=== PATIENT | male | born 1955 | race Caucasian/White ===

== ENCOUNTER 2020-12-29 01:15 | Day surgery (SDC) | payer OTHER, SELFPAY ==
[2020-12-18 11:38] VITALS: BMI 25.0
[2020-12-29 09:10] VITALS: BP 128/86; PULSE 68; RESP 18; TEMP 36.9; O2SAT 100
[2020-12-29] MEDS: LACTATED RINGERS 1,000 ML 150 ML IV CONT (09:21)
--- NOTE | 2020-12-29 09:28 | PM.HPGS ---
History of Present Illness History of Present Illness Consent: Risks, benefits, and alternatives have been discussed and questions answered. Patient agrees to proceed with procedure. Chief complaint: neoplasm screening Narrative: Leroy Lai is a 65 year old male referred for colon cancer screening Review of Systems Review of Systems: All systems reviewed & are unremarkable except as noted in HPI and below PMFSH Family History Family History Mother Family history of osteoporosis Father Family history of Alzheimer's disease Social History Social History Smoking packs per day: 0.75 Smoking cigarettes per day: 15.0 Smoking status: Current every day smoker Tobacco type: cigarettes Second hand tobacco smoke exposure: No Alcohol intake: current Drinks per week: 15 Substance use: current Substance use type: marijuana Other substance usage details: Rarely Living arrangements: alone Spiritual care concerns: No Meds Home Medications and Allergies Home Medications Medication Instructions Recorded Confirmed Type No Home Medications 12/18/20 12/29/20 History Allergies Allergy/AdvReac Type Severity Reaction Status Date / Time No Known Allergies Allergy Verified 12/18/20 11:37 Vital Signs Vital Signs - 24 hr 12/29/20 09:10 Temperature 36.9 C Pulse Rate 68 Respiratory Rate 18 Blood Pressure 128/86 Pulse Oximetry 100 Exam Resp: Auscultation: clear to auscultation bilaterally Cardio: Rate: regular rate Rhythm: regular rhythm GI: GI Palp: Yes Soft to palpation and No Tenderness to palpation present (GI) Assessment and Plan Assessment and plan (1) Colon cancer screening: Code(s): Z12.11 - Encounter for screening for malignant neoplasm of colon Status: Acute Assessment and Plan: Colonoscopy with possible biopsy or polypectomy or cautery or injection of substances.
--- NOTE | 2020-12-29 09:28 | WPDANESEPPF ---
Anes - Initial Pre Proc Eval Procedure: Operation Date: 12/29/20 10:30 Proposed Procedures p Screening Colonoscopy - Cullen Clarke MD Date/Time: 12/29/20 09:28 Surgeon: Cullen Clarke MD Pre Op Diagnosis: neoplasm screening Patient Data Age: 65 Gender: M Height: 1.75 m Weight: 75.5 kg Last Vital Signs Temp 36.9 C 12/29/20 09:10 Pulse 68 12/29/20 09:10 Resp 18 12/29/20 09:10 BP 128/86 12/29/20 09:10 Pulse Ox 100 12/29/20 09:10 Allergies Allergy/AdvReac Type Severity Reaction Status Date / Time No Known Allergies Allergy Verified 12/18/20 11:37 Home Medications Medication Instructions Recorded Confirmed Type No Home Medications 12/18/20 12/29/20 History Patient hx anesthesia problems: none Family hx anesthesia problems: none Results Review: All pre-operative results and documents have been reviewed as part of the pre-operative evaluation. [facility] Family History Family History Mother Family history of osteoporosis Father Family history of Alzheimer's disease Social History Social History Smoking packs per day: 0.75 Smoking cigarettes per day: 15.0 Smoking status: Current every day smoker Tobacco type: cigarettes Second hand tobacco smoke exposure: No Alcohol intake: current Drinks per week: 15 Substance use: current Substance use type: marijuana Other substance usage details: Rarely Living arrangements: alone Spiritual care concerns: No Anes - Eval Final PreProcedure Day of Procedure 12/29/20 09:28 Patient weight: normal Heart: regular rate and rhythm Lungs: clear to auscultation Airway: Mallampati scale class II Neurological: alert and oriented Last oral intake: >/= 8 hours ASA classification: II Emergent: no Anesthetic plan: proceed Anesthesia type and monitoring: general GIVS and standard monitoring Results Review: All pre-operative results and documents have been reviewed as part of the pre-operative evaluation. Informed Consent: The patient's anesthetic plan and its attendant risks and benefits were discussed with the patient/family/POA. Questions were solicited and answers provided to the satisfaction of the patient/family/POA.
[2020-12-29 10:16] VITALS: BP 118/81; PULSE 68; RESP 18; O2SAT 100
[2020-12-29 10:26] VITALS: BP 141/76; PULSE 67; RESP 16; O2SAT 100
[2020-12-29 10:36] VITALS: BP 128/85; PULSE 56; RESP 14; O2SAT 99
== END 2020-12-29 10:52 | disposition home or self-care (01) ==
PROVIDERS: PCP Internal Medicine; Visit Provider Internal Medicine Gastroenterology
PROC: 0DJD8ZZ Inspection of Lower Intestinal Tract, Via Natural or Artificial Opening Endoscopic (ICD-10-PCS; CPT 45378; principal; 2020-12-29 10:30)
DX: Z12.11 Encounter for screening for malignant neoplasm of colon (principal); K63.5 Polyp of colon; K62.1 Rectal polyp; F17.210 Nicotine dependence, cigarettes, uncomplicated; F12.90 Cannabis use, unspecified, uncomplicated
CPT/HCPCS: 45381; 45385; 88305; J7120

== ENCOUNTER 2021-05-13 11:49 | Observation (INO) | payer OTHER, SELFPAY ==
[2021-05-13] VITALS (7 sets, daily range): BP systolic 128–190; BP diastolic 85–101; PULSE 58–100; RESP 14–18; TEMP 36.4–36.7; O2SAT 97–100; BMI 26.0
--- NOTE | ~2021-05-13 | NM_ITS ---
EXAMINATION: NM yessi stress w perfusion DATE: 05/14/2021 16:47 INDICATION: Chest heaviness. TECHNIQUE: Rest images were obtained following intravenous administration of 9.6 mCi Tc99m tetrofosmi n (Myoview). The patient was infused intravenously with Lexiscan (regadenoson). Then, 30.5 mCi Tc99m tetrofosmin (Myoview) was administered intravenously, and stress images were obtained. Data was recon structed into short axis and horizontal and vertical long axis SPECT images. Gated SPECT images were also obtained. COMPARISON: None. FINDINGS: There is no definite reversible or fixed perfusion abnormality to suggest ischemia or infar ction. There is no segmental wall motion abnormality. Left ventricular ejection fraction measures 5 8%. IMPRESSION: 1. No definite ischemia or infarct. 2. Normal left ventricular ejection fraction measuring 58%. Reviewed, dictated and finalized at location E. DEPOSIT CLERK
--- NOTE | ~2021-05-13 | XR_ITS ---
XR chest 2V DATE: 05/13/2021 12:19 INDICATION: Chest pain, chest tightness TECHNIQUE: PA and lateral views COMPARISON: None FINDINGS: Normal heart size. No hilar or mediastinal enlargement. The lungs are clear. No pleural eff usion or pulmonary vascular congestion or pneumothorax. Included skeletal structures are unremarkable . IMPRESSION: No active cardiopulmonary disease Reviewed, dictated and finalized at location A. MANAGER
--- NOTE | 2021-05-13 11:50 | ECG_ITS ---
Measurements Intervals [place] Rate: 95 P: 72 [place]: 160 QRS: 73 QRSD: 101 T: 57 QT: 334 QTc: 421 Interpretive Statements SINUS RHYTHM VENTRICULAR PREMATURE COMPLEX EARLY PRECORDIAL R/S TRANSITION MINIMAL Q WAVES- ANTEROLAT/INF LEADS BASELINE WANDER- V3 BORDERLINE ECG Electronically Signed On 05-13-2021 13:17:07 COUNTY DIRECTOR by Luc Castorena D.O.
[2021-05-13 12:08] LABS: Basophils Percent Auto 0.6 % (0.2-1.2); Eosinophils Absolute Auto 0.2 K/mm3 (0-0.3); Eosinophils Percent Auto 3.3 % (0-4.4); Hematocrit 41.7 % (42.0-52.0); Hemoglobin 14.7 g/dL (14.0-18.0); Immature Granulocyte Absolute 0.02 K/mm3 (0.00-0.031); Immature Granulocyte Percent A 0.3 % (0-0.5); Lymphocytes Percent Auto 28.9 % (18.3-44.2); Mean Corpuscular HGB Conc 35.3 g/dl (32-36); Mean Corpuscular Hemoglobin 33.6 pg (26-34); Mean Corpuscular Volume 95.2 fl (80-100); Mean Platelet Volume 8.5 fl (7.4-10.4); Monocytes Absolute Auto 0.6 K/mm3 (0.1-0.6); Monocytes Percent Auto 9.3 % (2.6-8.5); Neutrophils Absolute Auto 3.8 K/mm3 (1.3-6.7); Neutrophils Percent Auto 57.6 % (45.5-73.1); Platelet Count Result 248 k/mm3 (150-375); Red Blood Count 4.38 M/mm3 (4.6-6.20); Red Cell Distribution Width 12.2 % (11.5-14.5); White Blood Count 6.6 K/mm3 (4.5-10.0)
[2021-05-13 12:16] LABS: INR 0.9; Prothrombin Time 12.3 Seconds (11.1-14.7)
[2021-05-13 12:17] LABS: Partial Thromboplastin Time 28.8 SECONDS (22.3-36.8)
[2021-05-13 12:19] LABS: Alanine Aminotransferase 20 U/L (4-50); Albumin Level 4.6 g/dL (3.5-5.1); Alkaline Phosphatase 76 U/L (38-126); Anion Gap 9 mmol/L (8-16); Aspartate Amino Transferase 30 U/L (17-59); Bilirubin,Total 0.5 mg/dL (0.2-1.3); Blood Urea Nitrogen 9 mg/dL (9-20); Calcium 9.1 mg/dL (8.4-10.2); Carbon Dioxide 21 mmol/L (22-30); Chloride 98 mmol/L (98-107); Estimated CRCL calculation 81 ml/min; Estimated Glomerular Filt Rate > 60; Glucose 139 mg/dL (65-110); Lipase 101 U/L (23-300); Potassium 3.8 mmol/L (3.4-5.0); Sodium 128 mmol/L (137-145)
[2021-05-13 12:30] LABS: Troponin I < 0.012 ng/mL (0.000-0.034)
--- NOTE | 2021-05-13 15:22 | ED.CHESTPAIN ---
HPI - Chest Pain General Chief Complaint: Chest Pain Stated Complaint: chest pain, headache Time Seen by Provider: 05/13/21 15:22 Source: patient Mode of arrival: ambulatory Limitations: no limitations History of Present Illness HPI narrative: Patient is a 66-year-old male complaining of chest pain, midsternal, pressure, 6 out of 10, radiating to left upper extremity, started last night. Patient denies any shortness of breath, abdominal pain, nausea, vomiting, diaphoresis, fever or chills. Related Data Home Medications Medication Instructions Recorded Confirmed No Home Medications 12/18/20 05/13/21 Allergies Allergy/AdvReac Type Severity Reaction Status Date / Time No Known Allergies Allergy Verified 05/13/21 11:55 Review of Systems Review of Systems: All systems reviewed & are unremarkable except as noted in HPI and below Constitutional: Constitutional: Denies body ache(s), Denies chills, Denies excessive sweating, Denies fatigue, Denies fever(s), Denies headache(s), Denies lethargy, Denies malaise, Denies weakness and Denies weight loss Eyes: Eyes: Denies blurry vision, Denies change in vision and Denies loss of vision ENT: Denies dizziness, Denies ear discharge, Denies headache(s), Denies lip swelling, Denies epistaxis, Denies nasal congestion, Denies neck pain, Denies throat swelling and Denies tongue swelling Cardiovascular: Cardiovascular: Denies diaphoresis, Denies rapid heart rate, Denies edema, Denies irregular heart rhythm, Denies lightheadedness, Denies palpitations, Denies dyspnea and Denies dyspnea on exertion Respiratory: Respiratory: Denies chest congestion, Denies cough, Denies hemoptysis, Denies dyspnea and Denies dyspnea on exertion Gastrointestinal: Gastrointestinal: Denies abdominal pain, Denies melena, Denies hematochezia, Denies diarrhea, Denies nausea, Denies vomiting and Denies hematemesis Musculoskeletal: Musculoskeletal: Denies abnormal gait, Denies deformity, Denies joint swelling, Denies limited range of motion, Denies neck pain and Denies numbness Neurologic: Denies Abnormal speech present, Denies abnormal gait, Denies confusion, Denies dizziness, Denies headache(s), Denies focal weakness, Denies loss of vision, Denies numbness, Denies Other visual disturbances, Denies Sensory deficit (Neuro) and Denies weakness Psychiatric: Psychiatric: Denies confusion, Denies depression, Denies auditory hallucinations, Denies homicidal ideation and Denies suicidal ideation Endocrine: Endocrine: Denies cold intolerance, Denies excessive sweating, Denies fatigue, Denies heat intolerance and Denies palpitations Hematologic/Lymphatic: Hematologic/Lymphatic: Denies easy bleeding and Denies easy bruising Allergic/Immunologic: Allergic/Immunologic: Denies lip swelling, Denies throat swelling and Denies tongue swelling PMFSH Family History Family History Mother Family history of osteoporosis Father Family history of Alzheimer's disease Social History Social History Smoking packs per day: 0.75 Smoking cigarettes per day: 15.0 Smoking status: Current every day smoker Tobacco type: cigarettes Second hand tobacco smoke exposure: No Alcohol intake: current Drinks per week: 15 Substance use: current Substance use type: marijuana Other substance usage details: Rarely Spiritual care concerns: No Comments Past medical history: None Family history: Negative for coronary disease or [place] Exam Const: General: cooperative, healthy appearing, comfortable, no acute distress, well developed, alert and awake; No confusion Orientation/consciousness: oriented to person, oriented to place, oriented to time, patient oriented x3 and No confusion Limitations: no limitations HENMT: Head: normal to inspection, normocephalic and atraumatic Ears: hearing grossly normal bilaterally, TM normal on th
[2021-05-13] MEDS: NITROGLYCERIN OINTMENT 1 INCH DOSE TRANSDERM (16:07)
[2021-05-13 16:34] LABS: Troponin I < 0.012 ng/mL (0.000-0.034)
--- NOTE | 2021-05-13 16:34 | PC.NURSE ---
patient reports taking 325 aspirin prior to ED arrival. ERP informed. Aspirin order dc'd
--- NOTE | 2021-05-13 16:34 | PC.NURSE ---
patient reports 0-1 / 10 pressure in chest after nitro paste.
--- NOTE | 2021-05-13 19:41 | ADMGEN ---
This patient, Leroy Lai, was admitted to [facility] as an IMU overflow at 1940. Patient/family oriented to hospital policies and general routines including ID bracelet, bed and alarms, visiting hours, pain management, procedures, bathroom and other care routines, personal items, smoking policy, room service/diet, and visiting hours. Information on how to activate the Rapid Response Team has been discussed. Patient/Family are encouraged to report perceived risks to care and to ask questions if they do not understand what they are told or what they should do.
[2021-05-13 20:10] LABS: Troponin I < 0.012 ng/mL (0.000-0.034)
--- NOTE | 2021-05-13 21:31 | PM.IMHP ---
H&P: HPI History of Present Illness Date/Time: 05/13/21 21:31 Chief Complaint: chest heaviness Narrative: The Patient is a 66-year-old male who present to the ED with on and off complaints of chest heaviness that he is having since a week or so now. he rpeorts he is also having some achiness in his left shoulder, no obvious injury since about the same time. he went to see his pcp a week ago and his bp was 150s systolic at that time and suggested to quit smoking. he does smoke and has been for several years now. he did cut back on smoking, but has been having intermittent episodes of chest heaviness since then, along with some dizzy episodes. he thus came to the ED for evalaution. EKG with non specific st changes. Initial BP was high, he was given nitro patch, bp has been better. he is also feeling better. troponin initially and serial has remained negative. CXR is neggative. he is thus admitted to the hospital on observation status for further evaluation and management. Review of Systems Review of Systems: - CONSTITUTIONAL: Denies weight loss, fever and chills. - HEENT: Denies changes in vision and hearing - RESPIRATORY: Denies SOB and cough. - CV: Denies palpitations and reprots chest heaviness. - GI: Denies abdominal pain, nausea, vomiting and diarrhea. - : Denies dysuria and urinary frequency. - MSK: Denies myalgia and joint pain. reports left shouder and arm pain - SKIN: Denies rash and pruritus. - NEUROLOGICAL: Denies headache and syncope. - PSYCHIATRIC: Denies recent changes in mood. Denies anxiety and depression. All systems reviewed & are unremarkable except as noted in HPI and below Neurologic: Reports weakness Endocrine: Endocrine: Reports fatigue [facility] Family History Family History Mother Family history of osteoporosis Father Family history of Alzheimer's disease Social History Social History Smoking packs per day: 0.75 Smoking cigarettes per day: 15.0 Smoking status: Current every day smoker Second hand tobacco smoke exposure: No Alcohol intake: current Drinks per week: 15 Substance use: current Substance use type: marijuana Other substance usage details: Rarely Spiritual care concerns: No Meds Home Medications and Allergies Home Medications Medication Instructions Recorded Confirmed Type No Home Medications 12/18/20 05/13/21 History Allergies Allergy/AdvReac Type Severity Reaction Status Date / Time No Known Allergies Allergy Verified 05/13/21 11:55 Vital Signs Vital Signs - 24 hr 05/13/21 11:51 05/13/21 16:29 05/13/21 17:51 Temperature 97.5 F L Pulse Rate 100 62 70 Respiratory Rate 18 14 Blood Pressure 190/101 H 161/91 H Pulse Oximetry 100 100 05/13/21 19:29 05/13/21 20:00 Temperature 98.1 F Pulse Rate 60 62 Respiratory Rate 15 15 Blood Pressure 158/96 H 141/91 H Pulse Oximetry 97 99 Exam Narrative: GENERAL: The patient is well developed, not in acute distress HEENT: Nonicteric sclerae, PERRLA, EOMI. Oropharynx clear. Moist mucous membranes. Conjunctivae appear well perfused. CHEST: Chest wall is nontender. HEART: Regular rate and rhythm without murmur, rubs, or gallops LUNGS: Clear to auscultation bilaterally. no respiratory distress ABDOMEN: Soft, positive bowel sounds, non-tender, no organomegaly. SKIN: No rash, no excessive bruising, petechiae, or purpura. NEUROLOGIC: Cranial nerves II-XII intact, alert and oriented x 3, no gross motor deficits EXTREMITIES: no edema, cyanosis or clubbing Extrem: General: normal exam except as noted and no edema H&P: Results Labs Labs: Short CBC 05/13/21 Range/Units 12:00 WBC 6.6 (4.5-10.0) K/mm3 Hgb 14.7 (14.0-18.0) g/dL Hct 41.7 L (42.0-52.0) % Plt Count 248 (150-375) k/mm3 BMP 05/13/21 12:00 Sodium 128 L Potassium 3.8 Chloride 98
[2021-05-13 23:51] LABS: Creatine Kinase 72 U/L (55-170)
[2021-05-13 23:58] LABS: D Dimer < 0.22 ug/mL (<0.48)
[2021-05-14] VITALS (13 sets, daily range): BP systolic 128–167; BP diastolic 73–111; PULSE 52–73; RESP 11–19; TEMP 36.3–36.8; O2SAT 96–98
--- NOTE | 2021-05-14 | ECHO_ITS ---
Patient Info Name: Leroy Lai Age: 66 years : 1955 Gender: Male Ht: 69 in Wt: 176 lbs BSA: 1.98 m2 HR: 62 bpm BP: 136 / 95 mmHg Heart Rhythm: Sinus Rhythm Exam Date: 05/14/2021 12:39 PM [facility] Patient Status: Outpatient Admit Date: 05/13/2021 Staff Ordering Physician: Sam Higgins MD Serology Teacher: Corona Hinson, KAROLYN, RT Attending Provider: Clau Mcfarlane MD Referring Physician: Ronaldo JIMENEZ; Exam Type: CA echo doppler color flow Study Info Indications I11.0 - Hypertensive heart disease with heart failure Complete two-dimensional, color flow and Doppler transthoracic echocardiogram is performed. Strain analysis performed. Summary 1. Complete two-dimensional, color flow and Doppler transthoracic echocardiogram is performed. 2. Strain analysis performed. 3. Aneurysmal atrial septum. 4. Left ventricular chamber dimension is normal. 5. Left ventricular systolic function is normal, estimated at 65-70%. 6. There is no increased left ventricular wall thickness. 7. The left ventricular diastolic function is grade I diastolic dysfunction. 8. Global longitudinal strain is normal at -21 %. 9. There is mild mitral valve regurgitation. 10. There is mild tricuspid valve regurgitation. Left Ventricle Left ventricular chamber dimension is normal. Left ventricular systolic function is normal, estimated at 65-70%. There is no increased left ventricular wall thickness. The left ventricular diastolic function is grade I diastolic dysfunction. Global longitudinal strain is normal at -21 %. Right Ventricle Right ventricular chamber dimension is normal. Right ventricular systolic function is normal. Left Atria Left atrial chamber dimension is normal. Right Atria Right atrial chamber dimension is normal. Atrial Septum Aneurysmal atrial septum. Aortic Valve The aortic valve is trileaflet. There is mild aortic valve sclerosis. There is no aortic valve stenosis. There is trace aortic valve regurgitation. Pulmonic Valve The pulmonic valve is normal. There is no pulmonic valve stenosis. There is trace pulmonic regurgitation. Mitral Valve The mitral valve has normal leaflets. There is no mitral valve stenosis. There is mild mitral valve regurgitation. Tricuspid Valve The tricuspid valve leaflets are normal. There is no significant tricuspid valve stenosis. There is mild tricuspid valve regurgitation. Pericardium/Pleural The pericardium appears normal. Inferior Vena Cava Normal inferior vena cava with >50% collapse upon inspiration consistent with normal right atrial pressure, 5 mmHg. Aorta The aortic root size at the sinus of Valsalva is normal. Left Ventricular Outflow Tract Name Value Normal LVOT 2D LVOT Diameter 2.0 cm LVOT Doppler LVOT Peak Gradient 5 mmHg LVOT Mean Gradient 3 mmHg LVOT VTI 25 cm LVOT VTI/AV VTI Ratio 0.9 LVOT Stroke Volume 82 ml LVOT CO
[2021-05-14 06:08] LABS: Basophils Absolute Auto 0.1 K/mm3 (0.0-0.1); Basophils Percent Auto 0.7 % (0.2-1.2); Eosinophils Absolute Auto 0.3 K/mm3 (0-0.3); Eosinophils Percent Auto 3.9 % (0-4.4); Hematocrit 36.9 % (42.0-52.0); Immature Granulocyte Absolute 0.03 K/mm3 (0.00-0.031); Immature Granulocyte Percent A 0.4 % (0-0.5); Mean Corpuscular HGB Conc 35.2 g/dl (32-36); Mean Corpuscular Hemoglobin 33.5 pg (26-34); Mean Corpuscular Volume 95.1 fl (80-100); Mean Platelet Volume 8.4 fl (7.4-10.4); Monocytes Absolute Auto 0.6 K/mm3 (0.1-0.6); Monocytes Percent Auto 8.3 % (2.6-8.5); Neutrophils Absolute Auto 4.4 K/mm3 (1.3-6.7); Neutrophils Percent Auto 63.7 % (45.5-73.1); Platelet Count Result 213 k/mm3 (150-375); Red Blood Count 3.88 M/mm3 (4.6-6.20); Red Cell Distribution Width 11.9 % (11.5-14.5)
[2021-05-14 06:19] LABS: Anion Gap 4 mmol/L (8-16); Blood Urea Nitrogen 7 mg/dL (9-20); Calcium 8.7 mg/dL (8.4-10.2); Carbon Dioxide 23 mmol/L (22-30); Chloride 100 mmol/L (98-107); Estimated CRCL calculation 81 ml/min; Estimated Glomerular Filt Rate > 60; Glucose 100 mg/dL (65-110); Magnesium 1.9 mg/dL (1.6-2.3); Potassium 4.3 mmol/L (3.4-5.0); Sodium 127 mmol/L (137-145)
[2021-05-14] MEDS: ASPIRIN 81 MG ENTERIC TABLET PO (09:14)
[2021-05-14] MEDS: LOSARTAN POTASSIUM 25 MG TABLET PO (09:14)
--- NOTE | 2021-05-14 09:30 | P.PNIM_ITS ---
Progress Note: A&P Assessment and Plan (1) Chest pain: Qualifiers: Chest pain type: unspecified Qualified Code(s): R07.9 - Chest pain, unspecified Code(s): R07.9 - Chest pain, unspecified Status: Acute Assessment and Plan: * Chest pain: typical/atypical features * EKG with non specific st t changes * serial troponin negative * CXR negative * d dimer <0.22 * Risk factors: htn, smoking * Lipid profile in am * Aspirin 81mg PO daily * Cardiology has been consulted wait their recommendations * chest pain could be related to his uncontrolled HTN as well * Nitro sublingual PRN, stated that this helped the chest pain (2) Hyponatremia: Code(s): E87.1 - Hypo-osmolality and hyponatremia Status: Acute Assessment and Plan: * Na on admission was 128 * Trending down to 127 * Could be from excessive water intake over the last couple of days * Continue to trend * IV fluids (3) Hypertension: Code(s): I10 - Essential (primary) hypertension Status: Acute Assessment and Plan: * Current 136/95 * Uncontrolled nitro paste helped to lower * start losartan 25 mg po daily * Trend BP * Adjust therapy as indicated (4) ETOH abuse: Code(s): F10.10 - Alcohol abuse, uncomplicated Status: Acute Assessment and Plan: * Drinks minimum of 15 drinks a week * Thiamine and folic acid on board * Librium and Ativan also on board * Cessation education given * Education of withdrawal symptoms also given * [facility] protocol, current score 0 (5) Tobacco abuse: Code(s): Z72.0 - Tobacco use Status: Acute Assessment and Plan: * Smokes less than a pack a day * Smoke patch PRN * Smoking cessation provided for 8 minutes Time Spent With Patient Time with patient: Greater than 35 minutes Subjective Date/time seen: 05/14/21 0930 Interval history: Date/Time: 05/13/21 21:31 Narrative: The Patient is a 66-year-old male who present to the ED with on and off complaints of chest heaviness that he is having since a week or so now. he reports he is also having some achiness in his left shoulder, no obvious injury since about the same time. he went to see his pcp a week ago and his bp was 150s systolic at that time and suggested to quit smoking. he does smoke and has been for several years now. he did cut back on smoking, but has been having intermittent episodes of chest heaviness since then, along with some dizzy episodes. he thus came to the ED for evaluation. EKG with non specific st changes. Initial BP was high, he was given nitro patch, bp has been better. he is also feeling better. troponin initially and serial has remained negative. CXR is negative. Date/Time 05/14/21 0930 Patient was Lying in bed. Patient stated that he is feeling better since he got the nitro however does have a headache. Patient stated that he he still gets kind dizzy and mostly when standing. He did feel his palpitations and was all over. Patient stated he has had these feelings for about 10 days. Patient also talked to me about alcohol use. Patient stated that he usually drinks about 15 beers at minimum a week. Patient also states that he does not take any medications at home except for occasional Viagra occasional Xanax. Currently patient denies any chest pain, nausea, vomiting, diarrhea, constipation, abdominal pain. Patient did state that he was having some cramping in his legs however his sodium is low. He does admit to natalie
--- NOTE | 2021-05-14 09:30 | PM.IMPN ---
Progress Note: A&P Assessment and Plan (1) Chest pain: Qualifiers: Chest pain type: unspecified Qualified Code(s): R07.9 - Chest pain, unspecified Code(s): R07.9 - Chest pain, unspecified Status: Acute Assessment and Plan: Chest pain: typical/atypical features EKG with non specific st t changes serial troponin negative CXR negative d dimer <0.22 Risk factors: htn, smoking Lipid profile in am Aspirin 81mg PO daily Cardiology has been consulted wait their recommendations chest pain could be related to his uncontrolled HTN as well Nitro sublingual PRN, stated that this helped the chest pain (2) Hyponatremia: Code(s): E87.1 - Hypo-osmolality and hyponatremia Status: Acute Assessment and Plan: Na on admission was 128 Trending down to 127 Could be from excessive water intake over the last couple of days Continue to trend IV fluids (3) Hypertension: Code(s): I10 - Essential (primary) hypertension Status: Acute Assessment and Plan: Current 136/95 Uncontrolled nitro paste helped to lower start losartan 25 mg po daily Trend BP Adjust therapy as indicated (4) ETOH abuse: Code(s): F10.10 - Alcohol abuse, uncomplicated Status: Acute Assessment and Plan: Drinks minimum of 15 drinks a week Thiamine and folic acid on board Librium and Ativan also on board Cessation education given Education of withdrawal symptoms also given [facility] protocol, current score 0 (5) Tobacco abuse: Code(s): Z72.0 - Tobacco use Status: Acute Assessment and Plan: Smokes less than a pack a day Smoke patch PRN Smoking cessation provided for 8 minutes Time Spent With Patient Time with patient: Greater than 35 minutes Subjective Date/time seen: 05/14/21 0930 Interval history: Date/Time: 05/13/21 21:31 Narrative: The Patient is a 66-year-old male who present to the ED with on and off complaints of chest heaviness that he is having since a week or so now. he reports he is also having some achiness in his left shoulder, no obvious injury since about the same time. he went to see his pcp a week ago and his bp was 150s systolic at that time and suggested to quit smoking. he does smoke and has been for several years now. he did cut back on smoking, but has been having intermittent episodes of chest heaviness since then, along with some dizzy episodes. he thus came to the ED for evaluation. EKG with non specific st changes. Initial BP was high, he was given nitro patch, bp has been better. he is also feeling better. troponin initially and serial has remained negative. CXR is negative. Date/Time 05/14/21 0930 Patient was Lying in bed. Patient stated that he is feeling better since he got the nitro however does have a headache. Patient stated that he he still gets kind dizzy and mostly when standing. He did feel his palpitations and was all over. Patient stated he has had these feelings for about 10 days. Patient also talked to me about alcohol use. Patient stated that he usually drinks about 15 beers at minimum a week. Patient also states that he does not take any medications at home except for occasional Viagra occasional Xanax. Currently patient denies any chest pain, nausea, vomiting, diarrhea, constipation, abdominal pain. Patient did state that he was having some cramping in his legs however his sodium is low. He does admit to drinking a lot of water over the last couple days thinking that it would help his chest pain. Review of Systems Review of Systems: All systems reviewed & are unremarkable except as noted in HPI and below Exam Const: General: cooperative, no acute distress, well developed, alert and awake Nutritional Appearance: well nourished Orientation/consciousness: oriented to person, oriented to place, oriented to time and patient oriented x3 Limitations: no
--- NOTE | 2021-05-14 11:37 | PM.CNCAR ---
Assessment and Plan Assessment and plan (1) Chest pain: Qualifiers: Chest pain type: unspecified Qualified Code(s): R07.9 - Chest pain, unspecified Code(s): R07.9 - Chest pain, unspecified Status: Acute Assessment and Plan: Atypical chest pain. His shoulder pain is not related to his cardiac status. Shoulder pain is musculoskeletal in etiology. He does have some chest heaviness symptoms that are new to him. Will perform a Lexiscan myocardial perfusion study. Will discontinue his nitroglycerin paste. Aspirin 81 mg p.o. daily until stress test is complete (2) Hypertension: Code(s): I10 - Essential (primary) hypertension Status: Acute Assessment and Plan: Severely elevated at presentation. Losartan 25 mg p.o. daily and up titrate as need be. Discontinue nitroglycerin paste. 2D echocardiogram Doppler will be ordered and reviewed. Can add secondary agent such as metoprolol depending on results of stress test. (3) Hyponatremia: Code(s): E87.1 - Hypo-osmolality and hyponatremia Status: Acute Assessment and Plan: Workup per hospitalist. (4) Tobacco abuse: Code(s): Z72.0 - Tobacco use Status: Acute Assessment and Plan: Tobacco abuse counseling performed. History of Present Illness History of Present Illness Consult date/time: 05/14/21 11:37 Requesting physician: Florin Silva MD Consult reason: chest pain Reason For Visit: chest pain Narrative: Date of service 05/14/2021 Reason consultation: Chest pain Requesting provider: Dr. Silva History patient is a 66-year-old male who presents to the ER because of some left shoulder pain as well as high blood pressure and not feeling well. He states that about 10 days ago he started simply not feeling right. He had some left shoulder pain that has been relatively constant. It would hurt if he would move his arm back. He felt anxious and had some mild headaches. He saw his primary care provider within the last week and was noted his blood pressure is 150/90. No medications were initiated at that time. He continues to feel anxious as well as simply not feeling right. He had no exertional chest pain. He did have some intermittent mild chest pressure gently noted at night. He had some dyspnea when shoveling snow last week but otherwise no significant shortness of breath. He denies any syncope, presyncope, paroxysmal nocturnal dyspnea, orthopnea, edema or significant palpitations. When he came to the ER, his blood pressure was markedly elevated 190/101. Review of Systems Review of Systems: All systems reviewed & are unremarkable except as noted in HPI and below Constitutional: Constitutional: Denies weakness Eyes: Eyes: Denies blurry vision ENT: Denies Normal hearing present Cardiovascular: Cardiovascular: Reports chest pain and Denies leg edema Respiratory: Respiratory: Reports dyspnea on exertion Gastrointestinal: Gastrointestinal: Denies abdominal pain Genitourinary: Genitourinary: Denies dysuria Musculoskeletal: Musculoskeletal: Denies back pain and Denies neck pain Integumentary/Breasts: Skin/Breast: Denies dry skin Neurologic: Reports headache(s) Psychiatric: Psychiatric: Reports anxiety Endocrine: Endocrine: Denies fatigue Hematologic/Lymphatic: Hematologic/Lymphatic: Denies easy bleeding Allergic/Immunologic: Allergic/Immunologic: Denies GI upset with certain foods PMFSH Past Medical History Medical History (Updated 05/14/21 @ 11:41 by Sam Higgins MD) Tobacco abuse Family History Family History Mother Family history of osteoporosis Father Family history of Alzheimer's disease Social History Social History Smoking packs per day: 0.75 Smoking cigarettes per day: 15.0 Smoking status: Current every day smoker Second hand tobacco
--- NOTE | 2021-05-14 11:45 | EST_ITS ---
Patient Info Name: Leroy Lai Age: 66 years : 1955 Gender: Male Ht: 69 in Wt: 176 lbs BSA: 1.98 m2 HR: 62 bpm BP: 148 / 85 mmHg Heart Rhythm: Sinus Rhythm Exam Date: 05/14/2021 3:44 PM Exam Location: [facility] Stress Patient Status: Inpatient Admit Date: 05/13/2021 Staff Ordering Physician: Sam Higgins MD Attending Provider: Clau Mcfarlane MD Exercise Technologist: Ivy Graham, [place] Nurse: ROLDAN ANDRADE Exam Type: CA stress yessi w NM Study Info Indications R07.9 - Chest pain, unspecified A regadenoson stress test was performed. Summary 1. Please correlate with nuclear medicine images, reported separately. 2. No abnormal ST-T wave changes with lexiscan. Protocol: Lexiscan Stress ECG Details Stage: REST Duration (min): 1 min : 2 sec HR (bpm): 67 SBP (mmHg): 148 DBP (mmHg): 85 Stage: REST Duration (min): 4 min : 3 sec HR (bpm): 62 SBP (mmHg): 148 DBP (mmHg): 85 Stage: STAGE 1 Duration (min): 1 min : 0 sec HR (bpm): 104 SBP (mmHg): 161 DBP (mmHg): 80 Stage: RECOVERY Duration (min): 1 min : 0 sec HR (bpm): 108 SBP (mmHg): 161 DBP (mmHg): 80 Stage: RECOVERY Duration (min): 2 min : 0 sec HR (bpm): 100 SBP (mmHg): 161 DBP (mmHg): 80 Stage: RECOVERY Duration (min): 3 min : 0 sec HR (bpm): 92 SBP (mmHg): 167 DBP (mmHg): 88 Stage: RECOVERY Duration (min): 3 min : 2 sec HR (bpm): 93 SBP (mmHg): 167 DBP (mmHg): 88 Rest HR: 62 bpm Peak HR: 116 bpm Rest Sys BP: 148 mmHg Peak Sys BP: 167 mmHg Max Pred HR: 156 bpm % Max Pred HR: 74 % Target HR: 133 bpm Max RPP: 19,372 bpm*mmHg Target HR Summary: Hemodynamic response to exercise was normal BP Response: Normal blood pressure response Termination Reason: Completed protocol Cardiac Symptoms: None Total Time: 1 min : 0 sec Rest Reed BP: 85 mmHg Peak Reed BP: 88 mmHg Total Dose: 0.4 mg Resting ECG Normal sinus rhythm. LVH. Will see me a single-story. Stress ECG No abnormal ST/T wave changes with Lexiscan. Arrhythmias None. Report Signatures
[2021-05-14] MEDS: SODIUM CHLORIDE 0.9% IV 1,000 ML 75 ML IV CONT (12:09)
[2021-05-14] MEDS: THIAMINE HCL 100 MG TABLET PO (12:12)
[2021-05-14] MEDS: FOLIC ACID 1 MG TABLET PO (12:12)
[2021-05-14 12:37] LABS: Creatinine Urine 101.9 mg/dL; Urea Random Urine 406 MG/DL
[2021-05-14 12:39] LABS: Sodium Urine Random 53 meq/L
--- NOTE | 2021-05-14 15:53 | PC.NURSE ---
1500-pt transferred via wheelchair, with campus monitor for stress test.
[2021-05-14] MEDS: ACETAMINOPHEN 500 MG TABLET 1000 MG PO (18:03)
[2021-05-15] VITALS: BP 138/70; PULSE 64; RESP 13; O2SAT 97
[2021-05-15 04:00] VITALS: BP 140/70; PULSE 62; RESP 14; TEMP 36.3; O2SAT 96
[2021-05-15] MEDS: SODIUM CHLORIDE 0.9% IV 1,000 ML 75 ML IV CONT (04:00)
[2021-05-15 07:25] LABS: Basophils Absolute Auto 0.1 K/mm3 (0.0-0.1); Basophils Percent Auto 1.2 % (0.2-1.2); Eosinophils Absolute Auto 0.3 K/mm3 (0-0.3); Eosinophils Percent Auto 5.8 % (0-4.4); Hematocrit 38.1 % (42.0-52.0); Hemoglobin 13.4 g/dL (14.0-18.0); Immature Granulocyte Absolute 0.01 K/mm3 (0.00-0.031); Immature Granulocyte Percent A 0.2 % (0-0.5); Lymphocytes Absolute Auto 1.37 K/mm3 (0.9-3.2); Lymphocytes Percent Auto 31.9 % (18.3-44.2); Mean Corpuscular HGB Conc 35.2 g/dl (32-36); Mean Corpuscular Hemoglobin 33.3 pg (26-34); Mean Corpuscular Volume 94.8 fl (80-100); Mean Platelet Volume 8.5 fl (7.4-10.4); Monocytes Absolute Auto 0.4 K/mm3 (0.1-0.6); Monocytes Percent Auto 10.3 % (2.6-8.5); Neutrophils Absolute Auto 2.2 K/mm3 (1.3-6.7); Neutrophils Percent Auto 50.6 % (45.5-73.1); Platelet Count Result 213 k/mm3 (150-375); Red Blood Count 4.02 M/mm3 (4.6-6.20); Red Cell Distribution Width 11.9 % (11.5-14.5); White Blood Count 4.3 K/mm3 (4.5-10.0)
[2021-05-15 07:38] LABS: Alanine Aminotransferase 15 U/L (4-50); Albumin Level 3.9 g/dL (3.5-5.1); Alkaline Phosphatase 68 U/L (38-126); Anion Gap 9 mmol/L (8-16); Aspartate Amino Transferase 25 U/L (17-59); Bilirubin,Total 0.7 mg/dL (0.2-1.3); Blood Urea Nitrogen 8 mg/dL (9-20); Calcium 8.6 mg/dL (8.4-10.2); Carbon Dioxide 22 mmol/L (22-30); Chloride 100 mmol/L (98-107); Estimated CRCL calculation 92 ml/min; Estimated Glomerular Filt Rate > 60; Glucose 91 mg/dL (65-110); Magnesium 1.8 mg/dL (1.6-2.3); Potassium 4.2 mmol/L (3.4-5.0); Sodium 131 mmol/L (137-145)
[2021-05-15 08:00] VITALS: BP 125/84; PULSE 56; PULSE 66; RESP 16; TEMP 36.6; O2SAT 96
[2021-05-15 08:22] LABS: Cholesterol 175 mg/dL (0-200); HDL Direct 45 mg/dL; Triglycerides 113 mg/dL (<150)
[2021-05-15 08:33] LABS: LDL Cholesterol Direct 88 mg/dL
[2021-05-15] MEDS: ASPIRIN 81 MG ENTERIC TABLET PO (08:37)
[2021-05-15] MEDS: THIAMINE HCL 100 MG TABLET PO (08:37)
[2021-05-15] MEDS: FOLIC ACID 1 MG TABLET PO (08:37)
[2021-05-15] MEDS: LOSARTAN POTASSIUM 25 MG TABLET PO (08:37)
[2021-05-15] MEDS: MAGNESIUM SULF 2 GM/WATER 50ML 2 GM/50 ML BAG IVPB (08:45)
[2021-05-15 10:00] VITALS: PULSE 71
--- NOTE | 2021-05-15 10:00 | P.DS_ITS ---
DS: Admitting Diagnosis Discharge Date 05/15/21 1000 Admitting Diagnosis Angina and hyponatremia DS: Discharge Diagnosis Discharge Diagnosis (1) Chest pain: Qualifiers: Chest pain type: unspecified Qualified Code(s): R07.9 - Chest pain, unspecified Code(s): R07.9 - Chest pain, unspecified Status: Acute Assessment and Plan: * Chest pain: typical/atypical features * EKG with non specific st t changes * serial troponin negative * CXR negative * d dimer <0.22 * Risk factors: htn, smoking * Lipid profile in am * Aspirin 81mg PO daily * Cardiology has been consulted * Miah scan shows no abnormalities * Echo shows EF 60-65% with grade 1 diastolic dysfunction * chest pain could be related to his uncontrolled HTN as well (2) Hyponatremia: Code(s): E87.1 - Hypo-osmolality and hyponatremia Status: Acute Assessment and Plan: * Na on admission was 128 * Current sodium is 131 * Could be from excessive water intake over the last couple of days * Continue to trend * IV fluids (3) Hypertension: Code(s): I10 - Essential (primary) hypertension Status: Acute Assessment and Plan: * Current 140/70 * start losartan 25 mg po daily * Trend BP * Adjust therapy as indicated (4) ETOH abuse: Code(s): F10.10 - Alcohol abuse, uncomplicated Status: Acute Assessment and Plan: * Drinks minimum of 15 drinks a week * Thiamine and folic acid on board * Librium and Ativan also on board * Cessation education given * Education of withdrawal symptoms also given * [facility] protocol, current score 0 (5) Tobacco abuse: Code(s): Z72.0 - Tobacco use Status: Acute Assessment and Plan: * Smokes less than a pack a day * Smoke patch PRN * Smoking cessation provided for 8 minutes DS: Summary Hospital Course Hospital Course: Patient is a 66-year-old male with no significant medical history other than smoking and alcohol abuse. Patient presented the ED for chest heaviness that would radiate to his left shoulder. Patient stated that symptoms have been ongoing for the past week. It was noted that his blood pressure was elevated at 190/101 upon admission. Patient was started on losartan and blood pressure has been more controlled and is currently 140/70 today. EKG was initially done in showed no ST changes patient was in sinus rhythm. Patient was given nitro patch which did help the blood pressure and chest pain did resolve at that time. Troponins were trended and all 3 came back less than 0.012. Pamela scan stress test was also performed and showed no infarct or ischemia with a measured EF of 50%. Echo was performed showing EF of 60-65% with grade 1 diastolic dysfunction and no significant regurgitation with any of the valves. Patient was also noted to be hyponatremic with a sodium of 128 upon admission. Sodium was on trend was not noticing a downhill trend until 2 day which sodium is 131. Patient did admit to drinking a lot of water thinking that would help his chest pain. Patient was given IV fluids and sodium has corrected. Patient was also counseled about his alcohol abuse which the patient does admit to drinking a minimum of 15 drinks per week. Patient stated that he is a single man with no kids and lives that lifestyle. Patient was also counseled about smoking cessation as patient stated that he has cut down however has not completely quit. Patient was given counseling and stable for discharge at this time. Vital signs
--- NOTE | 2021-05-15 10:00 | PM.DS ---
DS: Admitting Diagnosis Discharge Date 05/15/21 1000 Admitting Diagnosis Angina and hyponatremia DS: Discharge Diagnosis Discharge Diagnosis (1) Chest pain: Qualifiers: Chest pain type: unspecified Qualified Code(s): R07.9 - Chest pain, unspecified Code(s): R07.9 - Chest pain, unspecified Status: Acute Assessment and Plan: Chest pain: typical/atypical features EKG with non specific st t changes serial troponin negative CXR negative d dimer <0.22 Risk factors: htn, smoking Lipid profile in am Aspirin 81mg PO daily Cardiology has been consulted Miah scan shows no abnormalities Echo shows EF 60-65% with grade 1 diastolic dysfunction chest pain could be related to his uncontrolled HTN as well (2) Hyponatremia: Code(s): E87.1 - Hypo-osmolality and hyponatremia Status: Acute Assessment and Plan: Na on admission was 128 Current sodium is 131 Could be from excessive water intake over the last couple of days Continue to trend IV fluids (3) Hypertension: Code(s): I10 - Essential (primary) hypertension Status: Acute Assessment and Plan: Current 140/70 start losartan 25 mg po daily Trend BP Adjust therapy as indicated (4) ETOH abuse: Code(s): F10.10 - Alcohol abuse, uncomplicated Status: Acute Assessment and Plan: Drinks minimum of 15 drinks a week Thiamine and folic acid on board Librium and Ativan also on board Cessation education given Education of withdrawal symptoms also given [facility] protocol, current score 0 (5) Tobacco abuse: Code(s): Z72.0 - Tobacco use Status: Acute Assessment and Plan: Smokes less than a pack a day Smoke patch PRN Smoking cessation provided for 8 minutes DS: Summary Hospital Course Hospital Course: Patient is a 66-year-old male with no significant medical history other than smoking and alcohol abuse. Patient presented the ED for chest heaviness that would radiate to his left shoulder. Patient stated that symptoms have been ongoing for the past week. It was noted that his blood pressure was elevated at 190/101 upon admission. Patient was started on losartan and blood pressure has been more controlled and is currently 140/70 today. EKG was initially done in showed no ST changes patient was in sinus rhythm. Patient was given nitro patch which did help the blood pressure and chest pain did resolve at that time. Troponins were trended and all 3 came back less than 0.012. Pamela scan stress test was also performed and showed no infarct or ischemia with a measured EF of 50%. Echo was performed showing EF of 60-65% with grade 1 diastolic dysfunction and no significant regurgitation with any of the valves. Patient was also noted to be hyponatremic with a sodium of 128 upon admission. Sodium was on trend was not noticing a downhill trend until 2 day which sodium is 131. Patient did admit to drinking a lot of water thinking that would help his chest pain. Patient was given IV fluids and sodium has corrected. Patient was also counseled about his alcohol abuse which the patient does admit to drinking a minimum of 15 drinks per week. Patient stated that he is a single man with no kids and lives that lifestyle. Patient was also counseled about smoking cessation as patient stated that he has cut down however has not completely quit. Patient was given counseling and stable for discharge at this time. Vital signs and labs have been stable. Patient is ready to go and denies any chest pain, shortness of breath, nausea, vomiting, diarrhea, constipation, weakness, fatigue. Time spent discussing smoking cessation with patient: more than 10 minutes Status at Discharge Functional status at discharge: independent ambulation Overall status at discharge: patient is progressing back to baseline Time Spent with Patient Time attestation: Total time spent p
--- NOTE | 2021-05-15 10:11 | PM.PNCARD ---
Progress Note: A&P Assessment and Plan (1) Chest pain: Qualifiers: Chest pain type: unspecified Qualified Code(s): R07.9 - Chest pain, unspecified Code(s): R07.9 - Chest pain, unspecified Status: Acute Assessment and Plan: Atypical chest pain. His shoulder pain is not related to his cardiac status. Shoulder pain is musculoskeletal in etiology. Stress test is is normal. (2) Hypertension: Code(s): I10 - Essential (primary) hypertension Status: Acute Assessment and Plan: Continue losartan. May need up titration as an outpatient. Follow-up with Dr. Martinez (3) Hyponatremia: Code(s): E87.1 - Hypo-osmolality and hyponatremia Status: Acute Assessment and Plan: Workup per hospitalist. (4) Tobacco abuse: Code(s): Z72.0 - Tobacco use Status: Acute Assessment and Plan: Tobacco abuse counseling performed. (5) Atrial septal aneurysm: Code(s): I25.3 - Aneurysm of heart Status: Acute Assessment and Plan: Low-dose aspirin 81 mg p.o. daily to be continued Subjective Date/time seen: 05/15/21 10:11 Interval history: 66-year-old admitted with some chest discomfort and high blood pressure Date of service 05/15/2021: He feels pretty well today. No chest pain, shortness breath. Anxious to go home. Stress test and echocardiogram essentially unremarkable. Echocardiogram did show an atrial septal aneurysm Review of Systems Review of Systems: All systems reviewed & are unremarkable except as noted in HPI and below Constitutional: Constitutional: Denies fatigue, Reports headache(s) and Denies weakness Eyes: Eyes: Denies blurry vision ENT: Denies Normal hearing present, Reports headache(s) and Denies neck pain Cardiovascular: Cardiovascular: Reports chest pain, Denies leg edema and Reports dyspnea on exertion Respiratory: Respiratory: Reports dyspnea on exertion Gastrointestinal: Gastrointestinal: Denies abdominal pain Genitourinary: Genitourinary: Denies dysuria Musculoskeletal: Musculoskeletal: Denies back pain and Denies neck pain Integumentary/Breasts: Skin/Breast: Denies dry skin Neurologic: Denies Normal hearing present, Reports headache(s) and Denies weakness Psychiatric: Psychiatric: Reports anxiety Endocrine: Endocrine: Denies fatigue Hematologic/Lymphatic: Hematologic/Lymphatic: Denies easy bleeding Allergic/Immunologic: Allergic/Immunologic: Denies GI upset with certain foods Exam Narrative: Patient awake alert oriented. Appears stated age Const: General: comfortable and no acute distress HENMT: General nose exam: Normal nares present Eyes: Sclera: sclerae normal Neck: Neck: supple and no JVD Chest: Other: Patient does have reproducible left shoulder pain to palpate Resp: Auscultation: clear to auscultation bilaterally Cardio: Rate: regular rate Rhythm: regular rhythm Heart sounds: no murmurs GI: Auscultation: normal bowel sounds Skin: General skin exam: normal color and no erythema Neuro: Cranial nerves: No Normal hearing present Cognition (Neuro): normal cognition Speech: normal speech Extrem: General: normal to inspection and no edema Psych: Mental Status: mental status grossly normal Objective Data Vital Signs Vital Signs: Vital Signs - 24 hr 05/14/21 12:00 05/14/21 14:00 05/14/21 16:00 Temperature 36.6 C 36.3 C L Pulse Rate 67 62 67 Pulse Rate [Bilateral Radial] 64 Respiratory Rate 13 17 Blood Pressure 146/80 H 149/73 H Pulse Oximetry 96 97 05/14/21 18:00 05/14/21 20:00 05/15/21 00:00 Temperature 36.8 C Pulse Rate 63 52 L 64 Pulse Rate [Bilateral Radial] 52 L 64 Respiratory Rate 13 13 Blood Pressure 160/90 H 138/70 Pulse Oximetry 97 97 05/15/21 04:00 05/15/21 08:00 Temperature 36.3 C L 36.6 C Pulse Rate 62 66 Pulse Rate [Bilateral Radial] 62 Respiratory Rate 14 16 Blood Pressure 140/70 125/84 Pulse Oximetry 96 96 Intake
[2021-05-17 03:17] LABS: Osmolality, Urine 293 mOsm/kg (50-1200)
== END 2021-05-15 11:15 | disposition home or self-care (01) ==
LOC: ANHED 17:05 → ANHCPC 19:02
PROVIDERS: Emergency Medicine; Internal Medicine; Nurse Practitioner; Admitting Provider Hospitalist; Emergency Provider Emergency Medicine; PCP Internal Medicine; Visit Provider Hospitalist
DX: R07.9 Chest pain, unspecified (principal); E87.1 Hypo-osmolality and hyponatremia; I10 Essential (primary) hypertension; F10.10 Alcohol abuse, uncomplicated; I25.3 Aneurysm of heart; I34.0 Nonrheumatic mitral (valve) insufficiency; I36.1 Nonrheumatic tricuspid (valve) insufficiency; F17.210 Nicotine dependence, cigarettes, uncomplicated; F12.90 Cannabis use, unspecified, uncomplicated
CPT/HCPCS: 36415; 71046; 78452; 80048; 80053; 80061; 82550; 82570; 83690; 83735; 83935; 84300; 84443; 84484; 84540; 85025; 85380; 85610; 85730; 93005; 93017; 93306; 96360; 96361; 96374; 99285; A9270; A9502; G0378; J2785; J3475; J7030